=== PATIENT | female | born 1975 | race Caucasian/White ===

== ENCOUNTER 2023-01-17 12:54 | Emergency (ER) | payer OTHER ==
[~2023-01-17] VITALS: Ht 160 cm; Wt 63.5 kg
[2023-01-17 13:31] LABS: Source, Urine Clean Catch
[2023-01-17 13:40] LABS: Appearance, Urine Clear (Clear); Bilirubin, Urine Neg (Neg); Blood, Urine Neg (Neg); Color, Urine Yellow (P-Yellow); Glucose Qualitative, Urine Neg (Neg); Ketones, Urine 1+ (Neg); Leukocyte Esterase, Urine Neg (Neg); Nitrite, Urine Neg (Neg); Protein, Urine 1+ (Neg); Specific Gravity, Urine 1.015 (1.003-1.022); Urobilinogen, Urine NORM (Normal)
[2023-01-17 13:41] LABS: BASOPHILS ABSOLUTE AUTO 0.12 K/mm3 (0.00-0.23); BASOPHILS PERCENT AUTO 1 % (0-2); EOSINOPHILS ABSOLUTE AUTO 0.33 K/mm3 (0.00-0.68); EOSINOPHILS PERCENT AUTO 3 % (0-6); Hematocrit 42.2 % (33.0-51.0); Hemoglobin 14.5 g/dL (11.5-16.0); IMMATURE GRAN ABSOLUTE AUTO 0.04 K/mm3 (0.00-0.10); IMMATURE GRAN PERCENT AUTO 0 % (0-1); LYMPHOCYTES ABSOLUTE AUTO 2.56 K/mm3 (0.84-5.20); LYMPHOCYTES PERCENT AUTO 21 % (21-46); MONOCYTES ABSOLUTE AUTO 0.74 K/mm3 (0.16-1.47); MONOCYTES PERCENT AUTO 6 % (4-13); Mean Corpuscular HGB 32.5 pg (26.0-34.0); Mean Corpuscular HGB Conc 34.4 g/dL (31.5-36.5); Mean Corpuscular Volume 95 fL (80-100); Mean Platelet Volume 11.1 fL (9.1-12.4); NEUTROPHILS PERCENT AUTO 68 % (41-73); Platelet Count 279 K/mm3 (150-400); RDW Coefficient Variation 12.9 % (11.7-14.2); Red Blood Cell Count 4.46 M/mm3 (3.80-5.20); White Blood Cell Count 11.99 K/mm3 (4.00-11.30)
[2023-01-17 14:08] LABS: Albumin, Blood 4.3 g/dL (3.4-5.0); Albumin/Globulin Ratio 1.2 (0.8-1.8); Bilirubin, Total 0.3 mg/dL (0.1-1.0); Bun/Creatinine Ratio 15.7 (12.0-20.0); Calcium, Blood 9.5 mg/dL (8.5-10.1); Creatinine, Blood 0.83 mg/dL (0.40-1.00); Globulin, Blood 3.6 g/dL (2.2-4.0); Potassium, Blood 4.3 mmol/L (3.5-5.5); Total Protein, Blood 7.9 g/dL (6.4-8.2)
[2023-01-17 14:19] VITALS: BP 171/103
[2023-01-17] MEDS ORDERED: ATOR40TA PO (14:31)
[2023-01-17] MEDS ORDERED: BUPROPION XL150 M1 PO (14:31)
[2023-01-17] MEDS ORDERED: CARVEDILOL6.25 MG PO (14:31)
[2023-01-17] MEDS ORDERED: Prinivil10 MG PO (14:31)
[2023-01-17] MEDS ORDERED: FAMO20 PO (15:52)
== END 2023-01-17 16:23 | disposition home or self-care (01) ==
LOC: ER 12:54
PROVIDERS: Physician Assistant
DX: K29.20 Alcoholic gastritis without bleeding (principal); F17.200 Nicotine dependence, unspecified, uncomplicated; I25.2 Old myocardial infarction; Z88.0 Allergy status to penicillin; Z88.8 Allergy status to other drugs, medicaments and biological substances; Z79.899 Other long term (current) drug therapy
CPT/HCPCS: 71046; 74176; 80053; 83690; 84484; 85025; 93005; 93010; A9270

== ENCOUNTER → 2025-06-02 | Outpatient (CLI) | payer OTHER ==
[~2025-06-02] MED LIST: ATOR40TA PO; BUPROPION XL150 M1 PO; CARVEDILOL6.25 MG PO; FAMO20 PO; Prinivil10 MG PO
[2025-06-03 13:41] LABS: Stool Occult Bld Immuno 1 Negative (NEGATIVE)
== END | disposition home or self-care (01) ==
LOC: LAB 08:00 → LAB SHORT 08:00
PROVIDERS: Family Medicine
DX: Z12.11 Encounter for screening for malignant neoplasm of colon (principal)
CPT/HCPCS: G0328